=== PATIENT | male | born 1965 | race Caucasian/White ===

== ENCOUNTER 2017-01-16 11:20 | Inpatient (IN) | payer OTHER ==
[~2017-01-16] VITALS: Ht 182.9 cm; Wt 102.0 kg
[2017-01-16] MEDS ORDERED: ASPIRIN 325 MG TAB PO ONE (16:30)
[2017-01-16 16:37] LABS: ADD SCAN DIFF NO
[2017-01-16 16:38] LABS: BASOPHILS % 0.6 % (0.0-2.0); EOSINOPHILS # 0.7 10^3/ul (0.0-0.5); EOSINOPHILS % 10.3 % (0.0-7.0); HEMOGLOBIN 15.4 g/dl (14.0-18.0); LYMPHOCYTES # 1.6 10^3/ul (0.8-2.9); LYMPHOCYTES % 23.5 % (15.0-51.0); MEAN CORPUSCULAR HEMOGLOBIN 28.8 pg (29.0-33.0); MEAN CORPUSCULAR HGB CONC 32.8 g/dl (32.0-37.0); MEAN CORPUSCULAR VOLUME 87.9 fl (82.0-101.0); MEAN PLATELET VOLUME 10.6 fl (7.4-10.4); MONOCYTE # 0.6 10^3/ul (0.3-0.9); MONOCYTES % 8.6 % (0.0-11.0); NEUTROPHIL # 3.8 10^3/ul (1.6-7.5); NEUTROPHILS % 56.7 % (39.0-77.0); PLATELET COUNT 197 10^3/UL (140-415); RED BLOOD COUNT 5.35 10^6/ul (4.70-6.10); RED CELL DISTRIBUTION WIDTH 12.9 % (11.5-14.5); WHITE BLOOD COUNT 6.8 10^3/ul (4.8-10.8)
[2017-01-16 16:48] LABS: INR 1.03; PROTIME 13.5 Sec (12.2-14.2); PT RATIO 1.1
[2017-01-16 16:49] LABS: PARTIAL THROMBOPLASTIN TIME 33.4 Sec (25.0-35.0)
--- NOTE | 2017-01-16 16:56 | RADRPT ---
AMENDMENT: 01/16/2017 5:50:21 PM Lamin Perla MD Addendum: There are calcified granulomas in the right lower lung. PROCEDURE: Chest x-ray CLINICAL INDICATION: Chest pain TECHNIQUE: Chest single view COMPARISON: None FINDINGS: The heart is normal in size. The pulmonary vessels are normal in caliber. The lungs are clear. Th e costophrenic angles are sharp. The visualized bony thorax is unremarkable. IMPRESSION: No acute cardiopulmonary disease. RPTAT: HH .Lamin Perla MD, MD Date Time Electronically viewed and signed by .Lamin Perla MD, MD on 01/16/2017 17:50 .W/
[2017-01-16 16:58] LABS: POTASSIUM 4.3 mmol/L (3.5-5.1)
[2017-01-16 17:00] LABS: CREATININE 0.85 mg/dl (0.61-1.24)
[2017-01-16 17:01] LABS: CALCIUM 9.4 mg/dl (8.4-10.2)
[2017-01-16 17:12] LABS: CK-MB 1.92 ng/ml (0.0-2.4)
[2017-01-16 17:17] LABS: TROPONIN-I 1.09 ng/ml (0.00-0.12)
[2017-01-16] MEDS ORDERED: HEPARIN 1000 UNITS/ML 10 ML INJ IV STA (17:22)
[2017-01-16] MEDS ORDERED: HEPARIN 25000 UNITS/250 ML 250 ML IV STA (17:22)
[2017-01-16 17:34] VITALS: TEMP 98.3
[2017-01-16] MEDS ORDERED: VERAPAMIL 5 MG INJ ONE (17:43)
[2017-01-16] MEDS ORDERED: IODIXANOL LOCM 100 ML BTL ONE (17:43)
[2017-01-16] MEDS ORDERED: LIDOCAINE 1% (MDV) 20 ML INJ ONE (17:43)
[2017-01-16] MEDS ORDERED: HEPARIN 1000 UNITS/ML 10 ML INJ ONE (17:44)
[2017-01-16] MEDS ORDERED: NITROGLYCERIN (IC) 100 MCG/ML INJ ONE (17:44)
[2017-01-16] MEDS ORDERED: IOHEXOL 350MG/ML 50 ML BTL ONE (17:56)
[2017-01-16] MEDS ORDERED: MIDAZOLAM 1 MG/ML 2 ML INJ ONE (18:00)
[2017-01-16] MEDS ORDERED: FENTAnyl 50 MCG/ML VIAL ONE (18:00)
--- NOTE | 2017-01-16 18:25 | ERA ---
ER Documentation Chief Complaint Date/Time DATE: 01/16/17 TIME: 18:15 Chief Complaint CHEST PAIN X 1 WEEK HPI 51-year-old male presents for 3 bouts of intermittent chest pain this week. The last one being this morning during which the patient did have shortness of breath but no nausea or vomiting. The episode lasted a couple of hours and then resolved. Patient currently states he has no chest pain or shortness of breath. He is currently symptom-free but his doctor sent him in to the emergency room to get checked. ROS All systems reviewed and are negative except as per history of present illness. PMhx/Soc Medical and Surgical Hx: pt denies Medical Hx History of Surgery: Yes (facial surgery) Anesthesia Reaction: No Hx Neurological Disorder: No Hx Respiratory Disorders: No Hx Cardiac Disorders: No Hx Psychiatric Problems: No Hx Miscellaneous Medical Probl: No Hx Alcohol Use: No Hx Substance Use: No Hx Tobacco Use: No Smoking Status: Never smoker Physical Exam Vitals Vital Signs Date Time Temp Pulse Resp B/P Pulse Ox O2 Delivery O2 Flow Rate FiO2 01/16/17 17:34 98.3 61 16 139/91 100 Room Air 01/16/17 11:21 98.0 71 18 158/77 99 Physical Exam Const: [] Noted distress Head: Atraumatic Eyes: Normal Conjunctiva ENT: Normal External Ears, Nose and Mouth. Neck: Full range of motion..~ No meningismus. Resp: Clear to auscultation bilaterally Cardio: Regular rate and rhythm, no murmurs Abd: Soft, non tender, non distended. Normal bowel sounds Skin: No petechiae or rashes Back: No midline or flank tenderness Ext: No cyanosis, or edema Neur: Awake and alert and oriented 3, no focal deficits Psych: Normal Mood and Affect Result Diagram: 01/16/17 1630 01/16/17 1630 Results 24 hrs Laboratory Tests Test 01/16/17 16:30 White Blood Count 6.810^3/ul Red Blood Count 5.3510^6/ul Hemoglobin 15.4g/dl Hematocrit 47.0% Mean Corpuscular Volume 87.9fl Mean Corpuscular Hemoglobin 28.8pg Mean Corpuscular Hemoglobin Concent 32.8g/dl Red Cell Distribution Width 12.9% Platelet Count 48713^3/UL Mean Platelet Volume 10.6fl Neutrophils % 56.7% Lymphocytes % 23.5% Monocytes % 8.6% Eosinophils % 10.3% Basophils % 0.6% Nucleated Red Blood Cells % 0.0/100WBC Neutrophils # 3.810^3/ul Lymphocytes # 1.610^3/ul Monocytes # 0.610^3/ul Eosinophils # 0.710^3/ul Basophils # 0.010^3/ul Nucleated Red Blood Cells # 0.010^3/ul Prothrombin Time 13.5Sec Prothrombin Time Ratio 1.1 INR International Normalized Ratio 1.03 Activated Partial Thromboplast Time 33.4Sec Sodium Level 141mmol/L Potassium Level 4.3mmol/L Chloride Level 99mmol/L Carbon Dioxide Level 30mmol/L Anion Gap 16 Blood Urea Nitrogen 15mg/dl Creatinine 0.85mg/dl Glucose Level 102mg/dl Calcium Level 9.4mg/dl Creatine Kinase 142IU/L Creatine Kinase Index 1.4 Creatinine Kinase MB (Mass) 1.92ng/ml Troponin I ng/ml Current Medications Medications (Trade) Dose Ordered Sig/Nati Route PRN Reason Start Time Stop Time Status Last Admin Dose Admin Aspirin (Aspirin) 325 mg ONCE ONCE PO 01/16/17 16:30 01/16/17 16:31 DC 01/16/17 16:58 Heparin Sodium (Porcine) 5000 unit 5,000 unit ONCE STAT IV 01/16/17 17:22 01/16/17 17:24 DC 01/16/17 17:36 Heparin Sodium (Porcine) 250 ml @ 0 mls/hr ONCE STAT IV 01/16/17 17:22 01/16/17 17:24 DC 01/16/17 17:50 Heparin Sodium/ Sodium Chloride (Heparin 1000 Units/NS (A-Line)) 1,500 ml @ ud STK-MED ONCE .ROUTE 01/16/17 17:43 01/16/17 17:44 DC Lidocaine (Xylocaine 1% (Mdv) 20 ml) 20 ml STK-MED ONCE .ROUTE 01/16/17 17:43 01/16/17 17:44 DC Iodixanol (Visipaque Locm) 100 ml STK-MED ONCE .ROUTE 01/16/17 17:43 01/16/17 17:44 DC Verapamil HCl 5 mg 5 mg STK-MED ONCE .ROUTE 01/16/17 17:43 01/16/17 17:44 DC Heparin Sodium/ Sodium Chloride (Heparin 1000 Units/NS (A-Line)) 500 ml @ ud STK-MED ONCE .ROUTE 01/16/17 17:43 01/16/17 17:44 DC Nitroglycerin (Nitroglycerin (Intracoronary)) 1,000 mcg STK-MED ONCE .ROUTE 01/16/17 17:44 01/16/17 17:45 DC Heparin Sodium (Porcine) (Heparin (1000 Units/ml)) 10,000 unit STK-MED ONCE .ROUTE 01/16/17 17:44 01/16/17 17:45 DC Iohexol (Omnipaque 350mg/ ml) 50 ml STK-MED ONCE .ROUTE 01/16/17 17:56 01/16/17 17:57 DC Midazolam HCl (Versed) 2 mg STK-MED ONCE .ROUTE 01/16/17 18:00 01/16/17 18:01 DC Fentanyl (Sublimaze) 100 mcg STK-MED ONCE .ROUTE 01/16/17 18:00 01/16/17 18:01 DC Procedures/MDM Patient developed acute STEMI in the emergency room. Although he remained asymptomatic he did have significant EKG changes with troponin elevation consistent with STEMI. Initial EKG done at 1124 showed normal sinus rhythm with Q waves and inverted T waves in leads II, III, and aVF without any significant depressions. He had less than 1 mm elevations in aVL as well. Repeat EKG done at 1720 after the patient received a bed in the emergency room showed evolution with 1 mm elevation in aVL with ST depressions in the inferior leads. He also developed T-wave inversions in the anterolateral leads. The patient still remained completely asymptomatic cardiology was called. I spoke with Dr. Samuel and I described the EKG changes to him and we activated a code STEMI based on EKG alone. Patient had already received aspirin 325 mg p.o. he was heparinized with 5000 units and a heparin drip was started. Patient was taken to the [facility] for coronary intervention. EKG #1 interpretation: Normal sinus rhythm rate of 60, normal axis, Q waves in leads II, III, and aVF with T-wave inversions in leads III and aVF. No ST elevations greater than 1 mm. Normal intervals. EKG #2 interpretation: ST depressions in leads III and aVF with new T-wave inversions in the anterolateral leads. [address] elevation in lead aVL. Normal axis, normal intervals. EKG concerning for STEMI. Chest x-ray interpretation: No acute process, no widened mediastinum, no infiltrate, no pneumothorax, no fractures ekg monitor tech interpretation: Normal sinus rhythm without arrhythmia Critical care time 33 minutes: This includes management of the patient a cardiac anomaly that evolved to a STEMI while in the emergency room, p.o. aspirin and then IV heparinization, discussion with admitting doctor and ocularist, discussion with patient, chart reviewed, multiple visits the patient's bedside to reassess cardiac status. This did not include any billable procedures. Departure Diagnosis: Primary Impression: STEMI (ST elevation myocardial infarction) Condition: Critical MARIA DLESLIFLOR LAMBERT Jan 16, 2017 18:25
[2017-01-16] MEDS ORDERED: CLOPIDOGREL 300 MG TAB ONE (18:34)
--- NOTE | 2017-01-16 18:42 | CONS ---
Date/Time of Note Date/Time of Note DATE: 01/16/17 TIME: 18:40 Assessment/Plan Assessment/Plan Problems: (1) STEMI (ST elevation myocardial infarction) Status: Acute Additional Assessment/Plan [facility] RCA STEMI s.p PCI of RCA normal other coronaRy ASA Plavix Metoprolol Lisinopril Atorvastatin 2D echo plan for /dc home tomorow Consultation Date/Type/Reason Admit Date/Time Date of Consultation: Jan 16, 2017 Type of Consultation: Interventional Cardiology Reason for Consultation STEMI Constitutional: no complaints Past Medical History Medical History: angina, coronary artery disease Social History Smoking Status: Never smoker Exam/Review of Systems Vital Signs Vitals Vital Signs Date Time Temp Pulse Resp B/P Pulse Ox O2 Delivery O2 Flow Rate FiO2 01/16/17 17:34 98.3 61 16 139/91 100 Room Air Exam Constitutional: alert, oriented Psych: no complaints Head: normocephalic Eyes: nl conjunctiva ENMT: nl external ears & nose Neck: supple Respiratory: clear to auscultation Cardiovascular: regular rate and rhythm Gastrointestinal: soft Musculoskeletal: nl extremities to inspection Results Result Diagram: 01/16/17 1630 01/16/17 1630 Results 24 hrs Laboratory Tests Test 01/16/17 16:30 White Blood Count 6.8 Red Blood Count 5.35 Hemoglobin 15.4 Hematocrit 47.0 Mean Corpuscular Volume 87.9 Mean Corpuscular Hemoglobin 28.8 L Mean Corpuscular Hemoglobin Concent 32.8 Red Cell Distribution Width 12.9 Platelet Count 197 Mean Platelet Volume 10.6 H Neutrophils % 56.7 Lymphocytes % 23.5 Monocytes % 8.6 Eosinophils % 10.3 H Basophils % 0.6 Nucleated Red Blood Cells % 0.0 Neutrophils # 3.8 Lymphocytes # 1.6 Monocytes # 0.6 Eosinophils # 0.7 H Basophils # 0.0 Nucleated Red Blood Cells # 0.0 Prothrombin Time 13.5 Prothrombin Time Ratio 1.1 INR International Normalized Ratio 1.03 Activated Partial Thromboplast Time 33.4 Sodium Level 141 Potassium Level 4.3 Chloride Level 99 Carbon Dioxide Level 30 Anion Gap 16 Blood Urea Nitrogen 15 Creatinine 0.85 Glucose Level 102 Calcium Level 9.4 Creatine Kinase 142 Creatine Kinase Index 1.4 Creatinine Kinase MB (Mass) 1.92 Troponin I ANGELITO BELL MD Jan 16, 2017 18:42
[2017-01-16 20:00] VITALS: BP 129/77; PULSE 61; PULSE 65; RESP 15
[2017-01-16 21:00] VITALS: BP 140/99; PULSE 60; RESP 15
--- NOTE | 2017-01-16 21:05 | SP ---
DATE OF PROCEDURE: 01/16/2017 CARDIAC CATHETERIZATION REPORT INDICATIONS FOR THE PROCEDURE: ST-elevation myocardial infarction. PROCEDURES PERFORMED: 1. Selective right and left coronary angiography. 2. Left ventricular pressure measurement. 3. Complex successful PCI of mid right coronary artery with 3.5 x 16 mm drug-eluting stent. 4. Supervised procedural sedation. 5. Fluoroscopy. HISTORY OF PRESENT ILLNESS: Patient is a 51-year-old male who came in with intermittent ongoing melissa st pain on and off, stuttering chest pain into the ER. In ER, the first EKG was negative for any is chemic changes but the patient's repeat EKG had dynamic changes with ST-depression as well as T-wave inversion with t troponin positive at 1.0. A STEMI was called. The patient was taken to cardiac c atheterization lab emergently. PROCEDURE DETAILS: After informed consent, the patient was brought to cardiac catheter lab. The pa tient was prepped and draped in supine position. The right radial artery was accessed with a 6-Fren ch slender sheath over 0.035 wire with a JR4 guiding catheter engaged in the right coronary artery. Before that it was entered into left ventricle and left ventricular LVEDP was performed. Followed by that, it was engaged in the right coronary artery and found to have acute mid distal area of acut e lesion, which was successfully stented over the 0.035 wire with 3.5 x 16 mm drug-eluting stent. F ollowed by that, post-dilatation was performed with a 3.75 x 12 mm noncompliant balloon. After that , all the wires and catheters had been removed and a final angiographic picture of the right coronar y artery with less than 10% residual stenosis. Followed by that, the 0.035 wire was exchanged with an EBU 3.5 guiding catheter and engaged in the left main and left angiography was performed. All th e catheters and wires had been removed over the wire without any complication or dissection. CORONARY FINDINGS: 1. Left main: Mild diffuse disease. 2. LAD: Mild diffuse disease. 3. Left circumflex: Mild diffuse disease. 4. Right coronary artery: Proximal to mid mild disease. Followed by that, the mid distal had acut e 99% thrombotic stenosis with a large RPL and RPDA. CONCLUSIONS: 1. Acute thrombotic occlusion of the right coronary artery. 2. Successful complex PCI of the RCA with 3.5 x 16 mm Synergy drug-eluting stent. 3. Normal other coronaries. RECOMMENDATIONS: 1. Aspirin and Plavix at least for 1 year. 2. Admit to ICU. 3. IV hydration. 4. Possible discharge home tomorrow. Dictated By: ANGELITO BELL MD ML/NTS Conf#: [id number] DID#: [id number]
[2017-01-16 22:00] VITALS: BP 134/77; PULSE 60; RESP 14
[2017-01-16 22:10] VITALS: Ht 182.9 cm; Wt 102.0 kg
[2017-01-16] MEDS: SOD CHLORIDE 0.9% 1,000 ML IV SCH (22:13)
[2017-01-16 23:00] VITALS: BP 129/83; PULSE 60; RESP 15
[2017-01-17] VITALS (12 sets, daily range): BP systolic 116–137; BP diastolic 63–90; PULSE 59–75; RESP 18
--- NOTE | 2017-01-17 04:38 | HP ---
Date/Time of Note Date/Time of Note DATE: 01/17/17 TIME: 04:37 Assessment/Plan VTE Prophylaxis VTE Prophylaxis Intervention: other (To be discharged on ASA and [facility].) Lines/Catheters IV [facility]atheter [facility]from [facility]): [facility] Urinary Cath still in place: No Assessment/Plan Assessment/Plan 1) STEMI (ST elevation myocardial infarction) s/p successful complex PCI of the RCA with 3.5 x 16 mm Synergy drug-eluting stent for acute thrombotic occlusion of the right coronary artery - Follow Dr. Samuel's recommendations for: 1. Aspirin and Plavix at least for 1 year. 2. Admit to ICU. 3. IV hydration. 4. Possible discharge home tomorrow/01/17/17 HPI/ROS Admit Date/Time Admit Date/Time 01/16/17 1857 Hx of Present Illness Chief Complaint CHEST PAIN X 1 WEEK HPI: Patient presented to the ER last night with complaint of chest pain for a week. He developed and acute STEMI in the emergency room and was ultimately taken to the [facility] where he underwent: 1. Selective right and left coronary angiography. 2. Left ventricular pressure measurement. 3. Complex successful PCI of mid right coronary artery with 3.5 x 16 mm drug- eluting stent. 4. Supervised procedural sedation. 5. Fluoroscopy. He was found to have: CORONARY FINDINGS: 1. Left main: Mild diffuse disease. 2. LAD: Mild diffuse disease. 3. Left circumflex: Mild diffuse disease. 4. Right coronary artery: Proximal to mid mild disease. Followed by that, the mid distal had acute 99% thrombotic stenosis with a large RPL and RPDA. CONCLUSIONS: 1. Acute thrombotic occlusion of the right coronary artery. 2. Successful complex PCI of the RCA with 3.5 x 16 mm Synergy drug-eluting stent. 3. Normal other coronaries. RECOMMENDATIONS: 1. Aspirin and Plavix at least for 1 year. 2. Admit to ICU. 3. IV hydration. 4. Possible discharge home tomorrow. INITIAL ER PRESENTATION per ER Physician: 51-year-old male presents for 3 bouts of intermittent chest pain this week. The last one being this morning during which the patient did have shortness of breath but no nausea or vomiting. The episode lasted a couple of hours and then resolved. Patient currently states he has no chest pain or shortness of breath. He is currently symptom-free but his doctor sent him in to the emergency room to get checked. ER COURSE per Er Physician: Patient developed acute STEMI in the emergency room. Although he remained asymptomatic he did have significant EKG changes with troponin elevation consistent with STEMI. Initial EKG done at 1124 showed normal sinus rhythm with Q waves and inverted T waves in leads II, III, and aVF without any significant depressions. He had less than 1 mm elevations in aVL as well. Repeat EKG done at 1720 after the patient received a bed in the emergency room showed evolution with 1 mm elevation in aVL with ST depressions in the inferior leads. He also developed T-wave inversions in the anterolateral leads. The patient still remained completely asymptomatic cardiology was called. I spoke with Dr. Samuel and I described the EKG changes to him and we activated a code STEMI based on EKG alone. Patient had already received aspirin 325 mg p.o. he was heparinized with 5000 units and a heparin drip was started. Patient was taken to the [facility] for coronary intervention. EKG #1 interpretation: Normal sinus rhythm rate of 60, normal axis, Q waves in leads II, III, and aVF with T-wave inversions in leads III and aVF. No ST elevations greater than 1 mm. Normal intervals. EKG #2 interpretation: ST depressions in leads III and aVF with new T-wave inversions in the anterolateral leads. [address] elevation in lead aVL. Normal axis, normal intervals. EKG concerning for STEMI. Chest x-ray interpretation: No acute process, no widened mediastinum, no infiltrate, no pneumothorax, no fractures monitoring manager interpretation: Normal sinus rhythm without arrhythmia ROS See HPI for available ROS. Psychological: no complaints PMH/Family/Social Past Medical History Medical History: no pertinent history Past Surgical History Facial Surgery Social History Smoking Status: Never smoker Drug Use: none Exam/Review of Systems Vital Signs Vitals Vital Signs Date Time Temp Pulse Resp B/P Pulse Ox O2 Delivery O2 Flow Rate FiO2 01/17/17 01:00 98.2 63 137/84 95 01/16/17 23:00 15 Room Air Intake and Output 01/16/17 01/16/17 01/17/17 15:00 23:00 07:00 Intake Total 281.6 ml 300 ml Output Total 600 ml Balance -318.4 ml 300 ml Exam Exam General: Overweight male, resting comfortably in bed. Rouses easily. ALert and oriented. In no acute distress. Eyes: Sclera White, EOMI HENT: Normocephalic/Atraumatic, External Ears/Nose Normal, Moist Mucus Membranes Neck: Supple, Trachea Midline Cardiovascular: Normal Rate, Normal Rhythm, Normal S1 and S2, No Murmur, No Extra Sounds Pulmonary: Clear to Auscultation Bilaterally, Normal Respiratory Effort, No Rales, Rhonchi or Wheezes Gastrointestinal: Normoactive Bowel Sounds, Soft, Non-Tender/Non-Distended, No Hepatosplenomegaly Appreciated, No Pulsatile Masses Urogenital: Deferred Musculoskeletal: Normal Muscle Bulk and Tone Neurological: CN II - XII Grossly Intact, Non-Focal, Speech Normal Integumentary: Normal Moisture and Temperature, Good Turgor, No Jaundice, No Rash Lymphatic: No Cervical Lymphadenopathy Psychiatric: Appropriate Mood and Affect, Good Eye Contact Labs Result Diagram: 01/16/17 1630 01/16/17 1630 Medications Medications Current Medications Sodium Chloride (NS) 1,000 ml @ 100 mls/hr Q10H IV Last administered on t 22:13; Admin Dose 100 MLS/HR; Start 01/16/17 at 21:30; Stop 01/17/17 at 15: 00 Aspirin (Aspirin) 81 mg DAILY PO ; Start 01/17/17 at 09:00 Clopidogrel Bisulfate (plaVIX) 75 mg DAILY PO ; Start 01/17/17 at 09:00 Metoprolol Tartrate (Lopressor) 25 mg BID PO ; Start 01/17/17 at 09:00 Lisinopril (Zestril) 2.5 mg DAILY PO ; Start 01/17/17 at 09:00 Atorvastatin Calcium (Lipitor) 40 mg HS PO ; Start 01/17/17 at 21:00 Procedures Procedures Laboratory Tests Test 01/16/17 16:30 White Blood Count 6.810^3/ul Red Blood Count 5.3510^6/ul Hemoglobin 15.4g/dl Hematocrit 47.0% Mean Corpuscular Volume 87.9fl Mean Corpuscular Hemoglobin 28.8pg Mean Corpuscular Hemoglobin Concent 32.8g/dl Red Cell Distribution Width 12.9% Platelet Count 45156^3/UL Mean Platelet Volume 10.6fl Neutrophils % 56.7% Lymphocytes % 23.5% Monocytes % 8.6% Eosinophils % 10.3% Basophils % 0.6% Nucleated Red Blood Cells % 0.0/100WBC Neutrophils # 3.810^3/ul Lymphocytes # 1.610^3/ul Monocytes # 0.610^3/ul Eosinophils # 0.710^3/ul Basophils # 0.010^3/ul Nucleated Red Blood Cells # 0.010^3/ul Prothrombin Time 13.5Sec Prothrombin Time Ratio 1.1 INR International Normalized Ratio 1.03 Activated Partial Thromboplast Time 33.4Sec Sodium Level 141mmol/L Potassium Level 4.3mmol/L Chloride Level 99mmol/L Carbon Dioxide Level 30mmol/L Anion Gap 16 Blood Urea Nitrogen 15mg/dl Creatinine 0.85mg/dl Glucose Level 102mg/dl Calcium Level 9.4mg/dl Creatine Kinase 142IU/L Creatine Kinase Index 1.4 Creatinine Kinase MB (Mass) 1.92ng/ml Troponin I ng/ml RADIOLOGY: AMENDMENT: 01/16/2017 5:50:21 PM Lamin Perla MD Addendum: There are calcified granulomas in the right lower lung. PROCEDURE: Chest x-ray CLINICAL INDICATION: Chest pain TECHNIQUE: Chest single view COMPARISON: None FINDINGS: The heart is normal in size. The pulmonary vessels are normal in caliber. The lungs are clear. The costophrenic angles are sharp. The visualized bony thorax is unremarkable. IMPRESSION: No acute cardiopulmonary disease. CARMEN CAMACHO DO Jan 17, 2017 04:38 CARMEN CAMACHO DO Jan 17, 2017 04:38 CARMEN CAMACHO DO Jan 17, 2017 04:38
[2017-01-17 05:26] LABS: CK-MB 2.98 ng/ml (0.0-2.4)
[2017-01-17 05:51] LABS: TROPONIN-I 1.47 ng/ml (0.00-0.12)
[2017-01-17] MEDS: SOD CHLORIDE 0.9% 1,000 ML IV SCH (08:30)
[2017-01-17] MEDS ORDERED: ASPIRIN 81 MG TAB PO SCH (09:00)
[2017-01-17] MEDS ORDERED: CLOPIDOGREL 75 MG TAB PO SCH (09:00)
[2017-01-17] MEDS ORDERED: METOPROLOL 25 MG TAB PO SCH (09:00)
[2017-01-17] MEDS ORDERED: LISINOPRIL 5 MG TAB PO SCH (09:00)
[2017-01-17 10:00] LABS: CHOL/HDL RATIO 5.6 RATIO
[2017-01-17 12:06] LABS: CREATININE 0.87 mg/dl (0.61-1.24)
[2017-01-17 12:07] LABS: CALCIUM 8.7 mg/dl (8.4-10.2); MAGNESIUM 2.1 mg/dl (1.7-2.5)
--- NOTE | 2017-01-17 12:58 | RADRPT ---
Echocardiogram Report Patient Name: LENNIE ALBARADO Gender: Male Date: 1965 Study Date: 17-Jan-2017 Desk Lieutenant: [facility] Location: [facility] Ref. Physician: HUY SAMUEL Quality: Adequate Procedures: Transthoracic echocardiogram with complete 2D, M-Mode, and doppler examination. Indications: STEMI. 2D/M Mode Doppler Measurement Value Normal Ranges Measurement Value Normal Ranges LVIDd 2D 4.8 3.5 - 5.6 cm AV Peak Aravind 1.5 m/sec LVIDs 2D 3.4 2.1 - 4.1 cm AV Peak PG 8.9 mmHg LVPWd 2D 1.3 0.6 - 1.1 cm LVOT Peak Aravind 0.8 m/sec IVSd 2D 1.3 0.6 - 1.1 cm LVOT Peak PG 2.8 mmHg AoR Diam 2D 3.2 2.0 - 3.7 cm MV E Peak Aravind 0.8 m/sec EDV 2D 109.0 cm3 MV A Peak Aravind 0.8 m/sec ESV 2D 38.7 cm3 MV E/A 1.0 MV Decel Time 143 msec MV Decel Henderson 5 MV E/A 1.0 Findings Left Ventricle: Normal left ventricular systolic function. Normal left ventricular cavity size. Mild concentric left ventricular hypertrophy. Ejection fraction is visually estimated at 65 %. Abnormal Diastolic Function. Right Ventricle: Normal right ventricular size. Normal right ventricular systolic function. Left Atrium: The left atrium is normal in size. Right Atrium: The right atrium is normal in size. RA Pressure=3. Mitral Valve: Mild mitral leaflet calcification. Trace mitral regurgitation. Aortic Valve: Trileaflet aortic valve. Trace aortic valve regurgitation. Tricuspid Valve: Normal appearance and function of the tricuspid valve with trace physiologic regurgitation. Pulmonic Valve: There is trace pulmonic regurgitation. Pericardium: Normal pericardium with no significant pericardial effusion. Aorta: Normal aortic root. IVC: Normal size and normal respiratory collapse consistent with normal right atrial pressure. Conclusions Normal left ventricular systolic function. Normal left ventricular cavity size. Mild concentric left ventricular hypertrophy. Ejection fraction is visually estimated at 65 %. Abnormal Diastolic Function. Mild mitral leaflet calcification. Trace mitral regurgitation. Trileaflet aortic valve. Trace aortic valve regurgitation. Normal appearance and function of the tricuspid valve with trace physiologic regurgitation. Electronically Signed By: Huy Samuel 17-Jan-2017 12:58:01 -0700 Patient Name: LENNIE ALBARADO Study Date: 17-Jan-[id number]
--- NOTE | 2017-01-17 13:00 | PDOCDIS ---
Discharge Instructions DIAGNOSIS Discharge Diagnosis: CAD CONDITION Patient Condition: Stable HOME CARE INSTRUCTIONS: Diet Instructions: Low Fat /Cholesterol FOLLOW UP/APPOINTMENTS Appointments 1. Huy Samuel MD Specialty: Interventional Cardiology Office Address: [facility] [address] [place] [address] Office 2. Jhonatan Jordan MD Specialty: Internal Medicine Office Address: [address] [place] [address] Office OTHER ORDERS: Other Orders: 1. Low-cholesterol, carbohydrate controlled diet. 2. Take medications as per prescription. Do not stop taking aspirin and Plavix until you talk to your tool design engineer. Take aspirin lifelong. Continue taking Plavix for at least one year. 3. Resume activities as tolerated. 4. Follow-up with your tool design engineer (Lizzie) in 2 weeks. If you do not get appointment with his tool design engineer, have your primary care physician arrange for outpatient cardiology follow-up. If he does not have a primary care physician, please call Dr. Jhonatan Jordan's office. 5. Call 911 or go to the nearest emergency room if you have any chest pain. OSCAR TRAN NP Jan 17, 2017 13:00
[2017-01-17] MEDS ORDERED: METO-448 PO (13:01)
[2017-01-17] MEDS ORDERED: CLOP75TA28 PO (13:01)
[2017-01-17] MEDS ORDERED: ASPI81TA3 PO (13:01)
[2017-01-17] MEDS ORDERED: LISI-313 PO (13:01)
[2017-01-17] MEDS ORDERED: ATOR40TA68 PO (13:01)
--- NOTE | 2017-01-17 13:15 | CONS ---
Date/Time of Note Date/Time of Note DATE: 01/17/17 TIME: 13:14 Consult Date/Type/Reason Admit Date/Time Jan 16, 2017 at 18:58 Initial Consult Date 01/16/17 Type of Consultation: Interventional Cardiology Objective Vital Signs Date Time Temp Pulse Resp B/P Pulse Ox O2 Delivery O2 Flow Rate FiO2 01/17/17 12:42 68 01/17/17 12:06 98.0 18 116/64 98 01/17/17 04:00 Room Air Intake and Output 01/16/17 01/16/17 01/17/17 15:00 23:00 07:00 Intake Total 281.6 ml 700 ml Output Total 600 ml 300 ml Balance -318.4 ml 400 ml Results/Medications Result Diagram: 01/16/17 1630 01/17/17 0435 Results 24 hrs Laboratory Tests Test 01/16/17 16:30 01/17/17 04:30 01/17/17 04:35 White Blood Count 6.8 Red Blood Count 5.35 Hemoglobin 15.4 Hematocrit 47.0 Mean Corpuscular Volume 87.9 Mean Corpuscular Hemoglobin 28.8 L Mean Corpuscular Hemoglobin Concent 32.8 Red Cell Distribution Width 12.9 Platelet Count 197 Mean Platelet Volume 10.6 H Neutrophils % 56.7 Lymphocytes % 23.5 Monocytes % 8.6 Eosinophils % 10.3 H Basophils % 0.6 Nucleated Red Blood Cells % 0.0 Neutrophils # 3.8 Lymphocytes # 1.6 Monocytes # 0.6 Eosinophils # 0.7 H Basophils # 0.0 Nucleated Red Blood Cells # 0.0 Prothrombin Time 13.5 Prothrombin Time Ratio 1.1 INR International Normalized Ratio 1.03 Activated Partial Thromboplast Time 33.4 Sodium Level 141 138 Potassium Level 4.3 4.0 Chloride Level 99 105 Carbon Dioxide Level 30 24 Anion Gap 16 13 Blood Urea Nitrogen 15 15 Creatinine 0.85 0.87 Glucose Level 102 104 Calcium Level 9.4 8.7 Creatine Kinase 142 102 Creatine Kinase Index 1.4 2.9 Creatinine Kinase MB (Mass) 1.92 2.98 H Troponin I 1.470 *H Hemoglobin A1c 6.0 H Magnesium Level 2.1 Triglycerides Level 162 H Cholesterol Level 185 LDL Cholesterol, Calculated 120 HDL Cholesterol 33 Cholesterol/HDL Ratio 5.6 Vitamin D 1,25-Dihydroxy 27.0 L Thyroid Stimulating Hormone (TSH) 2.000 Free Thyroxine 1.01 Medications Current Medications Sodium Chloride (NS) 1,000 ml @ 100 mls/hr Q10H IV Last administered on 08:30; Admin Dose 100 MLS/HR; Start 01/16/17 at 21:30; Stop 01/17/17 at 15: 00 Aspirin (Aspirin) 81 mg DAILY PO Last administered on 01/17/17 09:05; Admin Dose 81 MG; Start 01/17/17 at 09:00 Clopidogrel Bisulfate (plaVIX) 75 mg DAILY PO Last administered on 01/17/17 09 :06; Admin Dose 75 MG; Start 01/17/17 at 09:00 Metoprolol Tartrate (Lopressor) 25 mg BID PO Last administered on 01/17/17 09: 06; Admin Dose 25 MG; Start 01/17/17 at 09:00 Lisinopril (Zestril) 2.5 mg DAILY PO Last administered on 01/17/17 09:06; Admin Dose 2.5 MG; Start 01/17/17 at 09:00 Atorvastatin Calcium (Lipitor) 40 mg HS PO ; Start 01/17/17 at 21:00 Assessment/Plan Problems: (1) STEMI (ST elevation myocardial infarction) Additional Assessment/Plan s/p PCI of RC A ASA + Plavix BB Statin d.c home today ANGELITO BELL MD Jan 17, 2017 13:15
--- NOTE | 2017-01-17 15:12 | DS ---
DATE OF ADMISSION: 01/16/2017 DATE OF DISCHARGE: 01/17/2017 FINAL DIAGNOSES: 1. ST elevation myocardial infarction. Status post percutaneous coronary intervention to the right coronary artery. 2. Essential hypertension. 3. Dyslipidemia. 4. Prediabetes. 5. Obesity. CONSULTATIONS: Dr. Huy Samuel, interventional cardiology. HOSPITAL COURSE: This is a 51-year-old male who denies any significant past medical history who came to the emergency room with chief complaint of chest pain that has been going on for a 1 week period. Because of this, the patient went to see his primary care physician. The patient's primary care physician sent him to the emergency room. In the emergency room, the patient was noticed to have evidence of STEMI. Hence, a STEMI panel was called and the patient was emergently taken to the labor relations officer. The patient underwent a left heart catheterization and the patient underwent a PCI of the mid right coronary artery with a 3.5 x 16 mm drug-eluting stent. Post-procedure, the patient was taken to the intensive care unit. The patient was started on dual antiplatelet therapy. The patient was also started on beta blockers and DALTON inhibitors. He was started on statins. The patient's 2D echocardiogram revealed preserved left ventricular ejection fraction with abnormal diastolic dysfunction. The patient was noticed to have evidence of dyslipidemia and pre-diabetes. The patient had a stable post-procedure course. The patient had no more episodes of chest pain. The patient was cleared by cardiology to be discharged home. DISPOSITION AND PLAN: The patient will be discharged home today. The patient was instructed to take a low-cholesterol, carbohydrate controlled diet. He was instructed to take to take medications as per prescription. He was instructed not to stop taking aspirin and Plavix until he talks to his database security expert. He was instructed to take aspirin lifelong and to continue taking Plavix for at least 1 year. He was instructed to resume activities as tolerated. He was instructed to follow up with his database security expert in 2 weeks and if he does not get an appointment with his database security expert, to have his primary care physician arrange for outpatient database security expert followup. The patient was instructed to call 911 or go to the nearest emergency room if he has any chest pain. Case management order was done to arrange for 1 year supply of Plavix. The patient verbalized understanding of his discharge instructions. CONDITION AT DISCHARGE: Stable. DISCHARGE MEDICATIONS: 1. Aspirin 81 mg p.o. daily. 2. Atorvastatin 10 mg p.o. at bedtime. 3. Plavix 75 mg p.o. daily. 4. Lisinopril 2.5 mg p.o. daily. 5. Metoprolol 25 mg p.o. b.i.d. PERTINENT LABORATORY, DIAGNOSTIC DATA AND PROCEDURES: 1. Left heart catheterization. Complex PCI of mid right coronary artery with a 3.5 x 16 mm drug-eluting stent. 2. 2D echocardiogram. Ejection fraction of 65%. Normal diastolic function. Trace mitral regurgitation. Trace aortic valve regurgitation. 3. CBC: WBC 6.9, hemoglobin 15.4, hematocrit 47.0, platelet count 197. 4. BMP: Sodium 130, potassium 4.0, chloride 105, carbon dioxide 25, anion gap 30, BUN 15, creatinine 0.87, glucose 104, magnesium 2.1. 5. Hemoglobin A1c 6.0. 6. Fasting lipid panel: Triglycerides 162, total cholesterol 185, LDL 120, HDL 3.3. At this time, we would like to thank Dr. Samuel for seeing the patient, doing the necessary procedures, and providing clinical recommendations. The case and management of this patient was fully discussed with Dr. Hilton. Approximately 35 minutes was spent on coordinating the discharge on this patient. OSCAR HILTON MD, AM/NICK Conf#: [id number] DID#: [id number] CC: HUY SAMUEL MD;*EndCC* MTDD
[2017-01-17] MEDS ORDERED: ATORVASTATIN 40 MG TAB PO SCH (21:00)
[2017-01-18] MEDS ORDERED: INFLUENZA VIRUS VACCINE 0.5 ML (DISPENSING) IM* ONE (09:00)
== END 2017-01-17 15:55 | disposition home or self-care (01) | DRG 247 ==
LOC: E/R 11:20 → CCL 18:18 → ICU 18:58 → TEL 01-17 08:11
PROVIDERS: ADMIT Internal Medicine; ATTEND Family Medicine
PROC: B2111ZZ Fluoroscopy of Multiple Coronary Arteries using Low Osmolar Contrast (ICD-10-PCS; 2017-01-16)
PROC: 027034Z Dilation of Coronary Artery, One Artery with Drug-eluting Intraluminal Device, Percutaneous Approach (ICD-10-PCS; principal; 2017-01-16 18:00)
PROC: 4A023N7 Measurement of Cardiac Sampling and Pressure, Left Heart, Percutaneous Approach (ICD-10-PCS; 2017-01-16 18:00)
DX: I21.19 ST elevation (STEMI) myocardial infarction involving other coronary artery of inferior wall (principal); I25.10 Atherosclerotic heart disease of native coronary artery without angina pectoris
CPT/HCPCS: 36415; 71010; 80048; 80061; 82550; 82553; 82652; 83036; 83735; 84439; 84443; 84484; 85025; 85610; 85730; 87081; 93005; 93306; 93458; 96374; 96375; C1725; C1769; C1874; C1887; C9606; J1644; J2250; J3010; J7030; Q9967